=== PATIENT | female | born 1980 | race Hispanic/Latino ===

== ENCOUNTER 2024-08-20 06:06 | Emergency (ER) | payer SELFPAY ==
--- OUTSIDE RECORDS SUMMARY | 2024-08-20 06:08 | XMS REPORT | Continuity of Care Document ---
Author Name Unknown Address [address] [facility] [address] [place] [address] [facility] thconnect Address [address] [facility] [address] [place] [address] Care Team Providers Care Directional Drill Operator Name Role Phone Rashawn Smith Attending Clinician Unavailable Junior Eid Attending Clinician Unavailable Physician, No Primary or Family Admitting Clinic efra Unavailable Junior Eid Admitting Clinician Unavailable Payers Payer Name Policy Type Policy Number Effective Date Expirati on Date Source Allergies, Adverse Reactions, Alerts Allergy Name Allergy Type Status Severity Reaction(s) Onset Date Inactive Date Treating Clinician Comments Source FLAGYL DA Active U 05-13 00:00: 00 [facility] No Known Contrast Allergie s DA Active U 05-13 00:00: 00 [facility] No Known Food Allergie s DA Active U 05-13 00:00: 00 [facility] No Known Other Allergie s DA Active U 05-13 00:00: 00 [facility] Encounters Start Date/Time End Date/Time Encounter Type Admission Type Attending Clinicians Care Facility Care Department Encounter ID Source 2022-11-22 18:15:00 2022-11-22 23:01:00 Emergency EM Rashawn Smith [facility] [id number] [facility] 2022-11-11 12:00:00 2022-11-11 12:00:00 Outpatient Junior Howard [facility] [id number] [facility] Results Test Description Test Time Test Comments Results Result Co mments Source [id number] 22:11:00* Test Item Value Reference Range Interpretation Comme nts LIPASE (test code = LIP) 50 U/L 12.00-57.00 N HCG SERUM [id number] 22:11:00* Test Item Value Reference Range Interpretation Comme nts HCG SERUM QUAL (test code = HCGQL) NEGATIVE NEGATIVE This HCGQL test is NOT applicable for MALE patients.Check with nurse about probable order error.If Tumor Marker Test needed, nurse should order test "HCGTU"(Test #550.16086) [id number] 22:11:00* Test Item Value Reference Range Interpretation Comme nts TROPONIN-HS (test code = TROPI) <4.0 pg/mL 0-45 N CAUTION: Units o f the current test methodology (pg/mL)differ from the prior test methodology (ng/mL) by a factorof 1000. BASIC METABOLIC [id number] 22:11:00* Test Item Value Reference Range Interpretation Comme nts SODIUM (test code = NA) 138 mmol/L 136-145 N POTASSIUM (test code = K) 3.8 mmol/L 3.5-5.1 N CHLORIDE (test code = CL) 104.0 mmol/L 98-107 N CARBON DIOXIDE (test code = CO2) 22.0 mmol/L 21-32 N ANION GAP (test code = GAP) 15.8 10-20 N GLUCOSE (test code = GLU) 105 mg/dL 74-106 N BLOOD UREA NITROGEN (test code = BUN) 23 mg/dL 7-18 H GLOMERULAR FILTRATION RATE (test code = GFR) > 60 mL/min See_Comment The Glomerular Filtration Rate is a calculated parameterbased on serum Creatinine, patient age and sex. GFR valuesless than 60 mL/min/1.73 square meters are indicative ofChronic Kidney Disease. Values less than 15 mL/min/1.73square meters indicate Kidney failure. The calculation forGFR is based on the CKD-EPI (202) calculation. This formulais race indifferent and is the recommended formula for GFRby the National Kidney Foundation for Adults.The GFR will not calculate if the sex is unknown or if thepatient's age is <18 years. [Automated message] The system which generated this result transmitted reference range: >=60. The reference range was not used to interpret this result as normal/abnormal. CREATININE (test code = CREAT) 0.70 mg/dL 0.55-1.02 N Note change in reference range due to change in reagent. BUN/CREATININE RATIO (test code = BUN/CREA) 32.9 10-20 H CALCIUM (test code = CA) 9.3 mg/dL 8.5-10.1 N - CT ABD PELVIS [id number] 21:40:00 [facility])Name: VIOLETTA BARRERA : 1980 Sex: F Name: VIOLETTA BARRERA [facility] : 1980 Age/S: 42 / F [address] [facility] Unit #: [id number] Loc: [place] [address] Phys: Rashawn Smith MD Acct: [id number] Dis Date: Status: REG ER PHONE #: [phone] Exam Date: 11/22/20222114 FAX #: [phone] Reason: LLQ LUQ pain EXAMS: CPT CODE: [id number] CT ABD PELVIS W/CONT 16023 EXAM: - CT ABD PELVIS W/CONT DATE: 11/22/2022 6:23 PM. INDICATION: LLQ LUQ pain . COMPARISON: CT scan of the abdomen and pelvis performed June. TECHNIQUE: Volumetric CT acquisition of the abdomen and pelvis after the administration of intravenous contrast. Axial, coronal and sagittal reconstructions. AEC, mA/kV adjustment by patient size, and/or iterative reconstruction technique were used, per departmental dose- optimization program.Contrast phases: Venous and Delayed. IV contrast: 100 mL Isovue 370. Oral contrast: None. DLP: 725.6 mGy-cm. FINDINGS: Lines and Tubes: None. Lower Thorax: Unremarkable. Liver and Biliary Tree: Normal. Gallbladder: Normal. No CT evidence of gallstones. Adrenals: Normal. Spleen: Normal. Pancreas: Normal. Kidneys and Ureters: No stones, hydronephrosis, or suspicious masses are identified on either side. Bladder: Normal. Reproductive Organs: Cystic distention of the cervix may represent a nabothian cyst of it is not well evaluated. Multiloculated left ovarian cyst. Gastrointestinal Tract: Unrem arkable with normal caliber. PAGE 1 Signed Report (CONTINUED) Name: VIOLETTA BARRERA [facility] : 1980 Age/S: 42 / F [address] [facility] Unit #: [id number] Loc: [place] [address] Phys: Rashawn Smith MD Acct: [id number] Dis Date: Status: REG ER PHONE #: [phone] Exam Date: 2114 FAX #: [phone] Reason: LLQ LUQ pain EXAMS: CPT CODE: [id number] CT ABD PELVIS W/CONT 32491 (Continued) Appendix: Normal Peritoneum and Retroperitoneum: No free air or ascites. Lymph Nodes: No lymphadenopathy. Vasculature: Unremarkable. Bones: No acute abnormality. Degenerative changes wi thin the spine. Soft Tissues: Unremarkable. IMPRESSION: No acute intra-abdominal or pelvic abnormality. The pelvic structures are better evaluated on the same day pelvic ultrasound. ElectronicallySigned by Demario Overton M.D. on 11/22/2022 at 2140 Reported and signed by: Demario Overton M.D. CC: Rashawn Smith MD Technologist:Annette Caruso RT(R); NORA Mayfield CTDI: DLP: Trnscb Date/Time: 11/22/2022 (2139) [email or web address] Orig Print D/T: S: 11/22/2022 (2142) PAGE 2 Signed Report- DUP AB/PEL/SC [id number] 20:15:00 [facility] : 1980 Sex: F Name: VIOLETTA ARLELANO [facility] : 1980 Age/S: 42 / F [address] [facility] Unit#: [id number] [place] [address] Phys: Rashawn Smith MD Acct: [id number] Dis Date: Status: REG ER PHONE #: [phone] Exam Date: 11/22/20221952 FAX #: [phone] Reason: PELVIC PAIN EXAMS: CPT CODE: [id number] DUP AB/PEL/SC COMP 57839 EXAM: - US PELVIS COMPLETE, - US TRANSVAGINAL NON OB, - DUP AB/PEL/SC COMP DATE: 11/22/2022 6:23 PM. INDICATION: PELVIC PAIN . COMPARISON: None available. TECHNIQUE: Multiplanar grayscale and color Doppler ultrasound of the pelvis were obtained transabdominally through a distended urinary bladder followed by transvaginal examination postvoid. FINDINGS: UTERUS Orientation: Anteverted. Size: 7.7 x 4.7 x 6.4 cm. Echogenicity: Normal. Cervix: Nabothian cysts identified. Addition, there are heterogeneous blood products within the cervix. Masses: None. ENDOMETRIUM Endometrial stripe: 0.7 cm. Focal Lesions: None. RIGHT OVARY Size: 2.4 x 2.1 x 1.8 cm. Cysts: None. Masses: None. Doppler: Normal, low-resistance flow. LEFT OVARY Size: 4.1 x 2.4 x 2.7 cm.Cysts: A simple cyst measuring 2.8 cm is measured within the left ovary. Masses: None. Doppler: Normal, low-resistance flow. OTHER Adnexa: No anechoic cystic structures imaged adjacent to the left ovary which measures a maximum diameter of 2.2 cm. No internal complex features. Free Fluid: None. PAGE 1 Signed Report (CONTINUED) Name: VIOLETTA ARELLANO [facility] : 1980 Age/S: 42 / F [address] [facility] Unit #: [id number] Loc: [place] [address] Phys: Rashawn Smith MD Acct: [id number] Date: Status: REG ER PHONE #: [phone] Exam Date: 11/22/20221952 FAX #: [phone] Reason: PELVIC PAIN EXAMS: CPT CODE: [id number] DUP AB/PEL/SC COMP 52803 (Continued) Other Findings: None.IMPRESSION: Hemorrhagic blood products are imaged within the cervix. Left ovarian cyst versus multiloculated left ovarian cyst. An MRI of the pelvis may be of benefit. at 2014 Reported and signed by: Demario Overton M.D. CC: Rashawn Smith MD Technologist: Vero Freeman Trnscb Date/Time: 11/22/2022 (2014) [email or web address] Orig Print D/T: S: 11/22/2022 (2017) Probe: PAGE 2 Signed Report- US TRANSVAGINAL NON OB 2022-11-22 20:15:00 [facility]Name: VIOLETTA ARELLANO : 1980 Sex: F Name: VIOLETTA ARELLANO [facility] : 1980 Age/S: 42 / F [address] Unit#: [id number] Loc: [place] [address] Phys: Rashawn Smith MD Acct: [id number] Dis Date: Status: REG ER PHONE #: [phone] Exam Date: 11/22/20221952 FAX #: [phone] Reason: Pelvic Pain EXAMS: CPT CODE: [id number] [place] [address] EXAM: - US PELVIS COMPLETE, - US TRANSVAGINAL NONOB, - DUP AB/PEL/SC COMP DATE: 11/22/2022 6:23 PM. INDICATION: PELVIC PAIN . COMPARISON: None available. TECHNIQUE: Multiplanar grayscale and color Doppler ultrasound of the pelvis were obtained transabdominally through a distended urinary bladder followed by transvaginal examination postvoid. FINDI NGS: UTERUS Orientation: Anteverted. Size: 7.7 x 4.7 x 6.4 cm. Echogenicity: Normal. Cervix: Nabothian cysts identified. Addition, there are heterogeneous blood products within the cervix. Masses: None. ENDOMETRIUM Endometrial stripe: 0.7 cm. Focal Lesions: None. RIGHT OVARY Size: 2.4 x 2.1 x 1.8 cm. Cysts: None. Masses: None. Doppler: Normal, low-resistance flow. LEFT OVARY Size: 4.1 x 2.4 x 2.7 cm. Cysts: A simple cyst measuring 2.8 cm is measured within the left ovary. Masses: None. Doppler: Normal, low-resistance flow. OTHER Adnexa: No anechoic cystic structures imaged adjacent to the left ovary which measures a maximum diameter of 2.2 cm. No internal complex features. Free Fluid: None. PAGE 1 Signed Report (CONTINUED) Name: VIOLETTA ARELLANO [facility] : 1980 Age/S: 42/ F [address] Unit #: [id number] Loc: [place] [address] Phys: Rashawn Smith MD Acct: [id number] Dis Date: Status: REG ER PHONE #: [phone] Exam Date: 11/22/20221952 FAX #: [phone] Reason: Pelvic Pain EXAMS: CPT CODE: [id number] [place] [address] (Continued) Other Findings: None. IMPRESSION: Hemorrhagic blood products are imaged within the cervix. Left ovarian cyst versus multiloculated left ovarian cyst. An MRI of the pelvis may be of benefit. at 2014 Reported and signed by: Dmeario Overton M.D. CC: Rashawn Smith MD Technologist: Vero Freeman Trnscb Date/Time: 11/22/2022 (2014) [email or web address] Orig Print D/T: S: 11/22/2022 (2017) Probe: [id number] PAGE 2 Signed Report- US PELVIS [id number] 20:15:00 [facility] ([facility])Name: VIOLETTA ARELLANO : 1980 Sex: F Name: VIOLETTA ARELLANO [facility] : 1980 Age/S: 42 / F [address] Unit#: [id number] Loc: [place] [address] Phys: Rashawn Smith MD Acct: [id number] Dis Date: Status: REG ER PHONE #: [phone] Exam Date: 11/22/20221952 FAX #: [phone] Reason: PELVIC PAIN EXAMS: CPT CODE: [id number] US PELVIS COMPLETE 20591 EXAM: - US PELVIS COMPLETE, - US TRANSVAGINAL NON OB, - DUP AB/PEL/SC COMP DATE: 11/22/2022 6:23 PM. INDICATION: PELVIC PAIN . COMPARISON: None available. TECHNIQUE: Multiplanar grayscale and color Doppler ultrasound of the pelvis were obtained transabdominally through a distended urinary bladder followed by transvaginal examination postvoid. FINDINGS: UTERUS Orientation: Anteverted. Size: 7.7 x 4.7 x 6.4 cm. Echogenicity: Normal. Cervix: Nabothian cysts identified. Addition, there are heterogeneous blood products within the cervix. Masses: None. ENDOMETRIUM Endometrial stripe: 0.7 cm. Focal Lesions: None. RIGHT OVARY Size: 2.4 x 2.1 x 1.8 cm. Cysts: None. Masses: None. Doppler: Normal, low-resistance flow. LEFT OVARY Size: 4.1 x 2.4 x 2.7 cm. Cysts: A simple cyst measuring 2.8 cm is measured within the left ovary. Masses: None. Doppler: Normal, low-resistance flow. OTHER Adnexa: No anechoic cystic structures imaged adjacent to the leftovary which measures a maximum diameter of 2.2 cm. No internal complex features. Free Fluid: None. PAGE 1 Signed Report (CONTINUED) Name: VIOLETTA ARELLANO [facility] : 1980 Age/S: 42 / F [address] [facility] Unit #: [id number] Loc: [place] [address] Phys: Rashawn Smith MD Acct: [id number] Dis Date: Status: REG ER PHONE #: [phone] Exam Date: 11/22/20221952 FAX #: [phone] Reason: PELVIC PAIN EXAMS: CPT CODE: [id number] US PELVIS COMPLETE 44327 (Continued) Other Findings: None. IMPRESSION: Hemorrhagic blood products are imaged within the cervix. Left ovarian cyst versus multiloculated left ovarian cyst. An MRI of the pelvis may be of benefit. at 2015 Reported and signed by: Demario Overton M.D. CC:Rashawn Smith MD Technologist: Vero Freeman Trnscb Date/Time: 11/22/2022 (2014) [email or web address] Orig Print D/T: S: 11/22/2022 (2018) Probe: PAGE 2 Signed [id number] 20:13:00* Test Item Value Reference Range Interpretation Comme nts GLUBED (test code = GLUBED) 95 mg/dL 74-106 N Performed by cer lupe corrugator operator helper at [facility] CBC W/O [id number] 18:47:00* Test Item Value Reference Range Interpretation Comme nts WHITE BLOOD CELL (test code = WBC) 11.3 K/mm3 4.5-12.5 N RED BLOOD CELL (test code = RBC) 4.91 mill/mm3 3.7-5.2 N HEMOGLOBIN (test code = HGB) 14.6 gram/dL 11.5-15.5 N HEMATOCRIT (test code = HCT) 45.2 % 36.0-46.0 N MEAN CELL VOLUME (test code = MCV) 92.1 fL 80-98 N MEAN CELL HGB (test code = MCH) 29.7 picogram 27.0-33.0 N MEAN CELL HGB CONCETRATION (test code = MCHC) 32.3 gram/dL 33.0-36.0 L RED CELL DISTRIBUTION WIDTH (test code = RDW) 13.9 % 11.6-16.2 N PLATELET COUNT (test code = PLT) 280 K/mm3 150-450 N MEAN PLATELET VOLUME (test c ode = MPV) 10.2 fL 6.7-11.0 N URINALYSIS [id number] 18:45:00* Test Item Value Reference Range Interpretation Comme nts UA COLOR (test code = COLU) YELLOW YELLOW UA APPEARANCE (test code = APPU) HAZY CLEAR A IS THE SAMPLE FROM ER OR L&D?Y IF THE ANSWER IS NO,PLEASE DOCUMENT TWO RN SIGNATURES HERE- by [id number] 11/22/22 1845 UA GLUCOSE DIPSTICK (test code = DGLUU) NEGATIVE mg/dL NEGATIVE UA BILIRUBIN DIPSTICK (test code = BILU) NEGATIVE mg/dL NEGATIVE UA KETONE DIPSTICK (test code = KETU) NEGATIVE mg/dL NEGATIVE UA SPECIFIC GRAVITY (test code = SGU) 1.037 1.001-1.035 UA BLOOD DIPSTICK (test code = MARTIN) Negative mg/dL NEGATIVE UA PH DIPSTICK (test code = ESPERANZA) 5.5 5.0-8.0 UA PROTEIN DIPSTICK (test code = PROU) 50 (1+) mg/dL NEGATIVE A UA UROBILINIOGEN DIPSTICK (test code = URO) 2.0 (1+) mg/dL NEGATIVE A UA NITRITE DIPSTICK (test code = BIRD) NEGATIVE NEGATIVE UA LEUKOCYTE ESTERASE W REFLEX (test code = LEUUR) NEGATIVE Taylor/uL NEGATIVE UA WBC (test code = WBCU) 0-5 per HPF 0-5 UA RBC (test code = RBCU) 0-2 #/HPF 0-5 UA EPITHELIAL CELLS (test code = EPIU) MOD per HPF FEW UA BACTERIA (test code = BACU) FEW #/HPF NONE A UA HYALINE CAST (test code = HYALU) 3-5 #/LPF 0-5 UA MUCUS (test code = MUCU) MANY #/LPF FEW A Urine Source? Clean Catch
[2024-08-20 06:51] LABS: PT Prothrombin Time 13.4 SECONDS (9.4-12.5); Protime INR 1.2
[2024-08-20] MEDS ORDERED: DIAZEPAM 5 MG TABLET ONE (06:52)
[2024-08-20] MEDS ORDERED: NA CHLORIDE 0.9% 1,000 ML ONE (06:52)
[2024-08-20 06:54] LABS: Absolute Eosinophils 0.4 K/uL (0-0.5); Absolute Lymphocytes (CBC) 1.9 K/uL (0.7-4.9); Absolute Monocytes 0.4 K/uL (0.1-1.3); Absolute Neutrophil 2.7 K/uL (1.8-8.0); Basophils % 0.7 % (0-1.3); Eosinophils % 7.2 % (0-4.4); Hematocrit 38.5 % (36.0-45.0); Hemoglobin 12.8 g/dL (12.0-15.0); Lymphocytes % 35.3 % (15.3-44.8); MCH 28.8 pg (27.0-35.0); MCHC 33.3 g/dL (32.0-36.0); MCV 86.5 fL (80-100); MPV 8.4 fL (7.6-11.3); Monocytes % 7.2 % (3.3-12.3); Neutrophils % 49.6 % (41.7-73.7); Nucleated Red Blood Cells % 0.1 % (0-0); Platelets 264 thou/uL (152-406); RBC Red Blood Cell Count 4.45 M/uL (3.86-4.86); Red Cell Distribution Width 15.1 % (12.1-15.2)
[2024-08-20 07:05] LABS: ALT/SGPT 36 U/L (13-56); AST/SGOT 21 U/L (15-37); Albumin 3.4 g/dL (3.4-5.0); Albumin/Globulin Ratio 0.9 (1.1-1.8); Alkaline Phosphatase 91 U/L (45-117); Anion Gap 8.4 mEq/L (5.0-15.0); BUN Blood Urea Nitrogen 15 mg/dL (7-18); Bicarbonate 25 mEq/L (21-32); Bilirubin Total 0.4 mg/dL (0.2-1.0); Globulin 3.7 g/dL (2.3-3.5); Glomerular Filtration Rate 102 ml/min (=/>90); Glucose Level 110 mg/dL (74-106); NT PRO-BNP 72 pg/mL (<125); Potassium 3.4 mEq/L (3.5-5.1); Protein, Total 7.1 g/dL (6.4-8.2); Sodium Level 140 mEq/L (136-145)
[2024-08-20 07:06] LABS: Bilirubin Direct < 0.2 mg/dL (0-0.2); Bilirubin Indirect, Calculated 0.2 mg/dL (0.2-0.8); Troponin High Sensitivity < 3.0 pg/mL (<58.9)
--- NOTE | 2024-08-20 07:29 | RAD REPORT ---
EXAM: CT brain without contrast HISTORY: Numbness and dizziness COMPARISON: 2011 TECHNIQUE: Multiple contiguous axial images were obtained and a CT of the brain without contrast.. Sagittal and coronal reconstruction performed. Automated exposure control, adjustment of the mA and/or kV according to patient size, and/or iterative reconstruction. Unless otherwise specified, incidental f indings do not require dedicated imaging follow-up FINDINGS: An intracranial bleed is not seen Ventricles are normal caliber No extra-axial fluid collection noted No significant hypodensity within the brain No fluid within the visualized sinuses or mastoids noted. IMPRESSION: No acute intracranial abnormality noted. If the patient continues to have symptoms to suggest an acute intracranial abnormality then MRI of th e brain would be recommended.
--- NOTE | 2024-08-20 07:31 | RAD REPORT ---
Procedure: Chest Single View HISTORY: Dizziness and numbness COMPARISON: none FINDINGS: The lungs appear clear of acute infiltrate. No significant pleural effusion noted. The heart is probably upper limits normal size. IMPRESSION: No acute abnormality is displayed.
--- NOTE | 2024-08-20 07:37 | RAD REPORT ---
EXAMINATION: CTA HEAD CLINICAL INDICATION: Blurred vision and dizziness TECHNIQUE: Axial CT images were obtained through the head after 100 cc Isovue-370 intravenous contras t utilizing angiographic protocol with 3D post-processing (maximum intensity projection images, volume rendered images and/or shaded surface rendered images). One or more of the following dose red uction techniques were used: Automated exposure control, adjustment of the mA and/or kV according to patient size, and/or iterative reconstruction. Unless otherwise specified, incidental findings do not require dedicated imaging follow-up. COMPARISON: None FINDINGS: Distal internal carotid, basilar, anterior cerebral, middle cerebral and posterior cerebral arteries do not demonstrate a significant stenosis An aneurysm not noted. No large vessel occlusion IMPRESSION: No acute vascular abnormality displayed
--- NOTE | 2024-08-20 07:37 | RAD REPORT ---
EXAMINATION: Neck Angio CLINICAL INDICATION: Numbness and dizziness TECHNIQUE: Axial CT images were obtained from the aortic arch to the skull base after intravenous adm inistration of 100 cc Isovue-370 utilizing angiographic protocol. Multiplanar reformats, as well as 3D post-processing (maximum intensity projection images, volume rendered images and/or shaded surface rendered images) were generated and reviewed. One or more of the following dose reduction techniques were used: Automated exposure control, adjustment of the mA and/or kV according to patient size, and/or iterative reconstruction. Unless otherwise specified, incidental findings do not require dedicated imaging follow-up. COMPARISON: No prior exam. FINDINGS: The visualized aortic arch and great vessels do not demonstrate a significant abnormality. Bovine aor ta The common carotid, internal carotid and external carotid arteries unremarkable. No significant stenosis noted. A dissection is not seen. Methods for NASCET criteria: Mild stenosis, 0% to 49%; Moderate stenosis 50% to 69%; Severe stenosis, 70% to 99% IMPRESSION: No acute vascular abnormality displayed
--- NOTE | 2024-08-20 07:55 | EDPHYS ---
Physician Documentation [facility] Name: Aminah Roberts Age: 44 yrs Sex: Female : 1980 Arrival Date: 08/20/2024 Time: 06:06 Bed 3 Private MD: ED Physician Enrique Mendoza HPI: 08/20 06:23 This 44 yrs old Female presents to ER via Unassigned with complaints of sp4 dizziness . 07:07 44-year-old female presents with acute onset of dizziness generalized numbness. Patient sp4 was on her way to work and was at the gas station when generalized dizziness numbness occurred. Patient is ambulatory on arrival.. 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 - Infectious Disease History:: Denies. - Social history:: Smoking status: Patient denies any tobacco usage or history of. - Family history:: not pertinent. ROS: 07:07 Constitutional: Negative for fever, chills, and weight loss, positive dizziness sp4 positive generalized numbness 07:07 All other systems are negative, Exam: 07:07 Constitutional: This is a well developed, well nourished patient who is awake, alert, sp4 and in no acute distress. Head/Face: Normocephalic, atraumatic. Eyes: Pupils equal round and reactive to light, extra-ocular motions intact. Lids and lashes normal. Conjunctiva and sclera are not injected. Cornea within normal limits. Periorbital areas with no swelling, redness, or edema. ENT: Nares patent. No nasal discharge, no septal abnormalities noted. Tympanic membranes are normal and external auditory canals are clear. Oropharynx with no redness, swelling, or masses, exudates, or evidence of obstruction, uvula midline. Mucous membranes moist. Neck: Trachea midline, no thyromegaly or masses palpated, and no cervical lymphadenopathy. Supple, full range of motion without nuchal rigidity, or vertebral point tenderness. Chest/axilla: Normal chest wall appearance and motion. Nontender with no deformity. No lesions are appreciated. Cardiovascular: Regular rate and rhythm with a normal S1 and S2. No gallops, murmurs, or rubs. Normal PMI, no JVD. No pulse deficits. Respiratory: Lungs have equal breath sounds bilaterally, clear to auscultation and percussion. No rales, rhonchi or wheezes noted. No increased work of breathing, no retractions or nasal flaring. Abdomen/GI: Soft, with normal bowel sounds. No distension or tympany. No guarding or rebound. No evidence of tenderness throughout. Back: No spinal tenderness. No costovertebral tenderness. Skin: Warm, dry with normal turgor. Normal color with no rashes, no lesions, and no evidence of cellulitis. MS/ Extremity: Pulses equal, no cyanosis. Neurovascular intact. Full, normal range of motion. Neuro: Awake and alert, GCS 15, oriented to person, place, time, and situation. Cranial nerves II-XII grossly intact. Motor strength 5/5 in all extremities. Sensory grossly intact. Psych: Awake, alert, with orientation to person, place and time. Behavior, mood, and affect are within normal limits 07:08 ECG was reviewed by the Attending Physician. EKG at 0 636 normal sinus rhythm rate sp4 71. Vital Signs: 06:31 BP 142 / 90; Pulse 85; Resp 16; Temp 97.6; Pulse Ox 98% ; Weight 80.74 kg; Height 5 ft. vc1 2 in. ; 07:15 BP 138 / 82; Pulse 80; Resp 16; Pulse Ox 99% ; ko1 06:31 Body Mass Index 32.56 (80.74 kg, 157.48 cm) vc1 NIH Stroke Scale Scores: 06:25 NIHSS Score: 0 sp4 06:37 NIHSS Score: 0 vc1 Jaylyn Coma Score: 06:41 Eye Response: spontaneous(4). Motor Response: obeys commands(6). Verbal Response: dd2 oriented(5). Total: 15. 07:07 Eye Response: spontaneous(4). Motor Response: obeys commands(6). Verbal Response: sp4 oriented(5). Total: 15. MDM: 06:25 Medical Screening Exam initiated sp4 07:09 Differential diagnosis: generalized weakness, hyperventilation, hypovolemia, idiopathic sp4 dizziness, near-syncope, sepsis, syncope. Data reviewed: vital signs, nurses notes, lab test result(s), EKG, radiologic studies, CT scan. Consideration of Admission/Observation Escalation of care including admission/observation considered. Transition of care: After a detail discussion of the patient's case, care is transferred to Enrique Mendoza MD. 07:46 ED course: Patient signed out to me by night physician. Patient is a 44-year-old female sp3 with PMH above presenting with facial paresthesia. Full CVA workup was ordered as a precautionary measure which is negative including CTA of the head and neck. Normal neurological exam currently with NIH stroke scale 0. Patient will be safely discharged with follow-up with neurology at this time.. 08/20 06:27 Order name: Basic Metabolic Panel; Complete Time: 07:27 sp4 08/20 06:27 Order name: CBC with Diff; Complete Time: 07:27 4 08/20 06:27 Order name: LFT's; Complete Time: 07:27 4 08/20 06:27 Order name: Magnesium; Complete Time: 07:27 4 08/20 06:27 Order name: NT PRO-BNP; Complete Time: 07:27 4 08/20 06:27 Order name: PT-INR; Complete Time: 07:27 4 08/20 06:27 Order name: Troponin HS; Complete Time: 07:27 sp4 08/20 06:26 Order name: CT Head Angio; Complete Time: 07:42 4 08/20 06:26 Order name: CT Head Brain wo Cont; Complete Time: 07:42 4 08/20 06:27 Order name: CT Neck Angio; Complete Time: 07:42 4 08/20 06:27 Order name: XRAY Chest (1 view); Complete Time: 07:42 4 08/20 06:27 Order name: Cardiac monitoring; Complete Time: 06:42 4 08/20 06:27 Order name: EKG - Nurse/Tech; Complete Time: 06:42 4 08/20 06:27 Order name: IV Saline Lock; Complete Time: 06:42 4 08/20 06:27 Order name: Labs collected and sent; Complete Time: 06:42 4 08/20 06:27 Order name: O2 Per Protocol; Complete Time: 06:42 08/20 06:27 Order name: O2 Sat Monitoring; Complete Time: 06:42 sp4 EC:36 Rate is 71 beats/min. Rhythm is regular, Normal Sinus Rhythm. QRS Mabel is Normal. MI sp4 interval is normal. QRS interval is normal. QT interval is normal. No Q waves. T waves are Normal. No ST changes noted. Clinical impression: Normal ECG. Interpreted by me. Reviewed by me. Administered Medications: 07:03 Drug: NS 0.9% IV 1000 ml IV at 1 bolus Per protocol; to be given as a bolus over 60 dd2 minutes Route: IV; Rate: 1 bolus; Site: right antecubital; 08:08 Follow up: Response: No adverse reaction; IV Status: Completed infusion; IV Intake: ko1 1000ml 07:03 Drug: Diazepam PO 5 mg PO once Route: PO; dd2 07:35 Follow up: Response: No adverse reaction ko1 Disposition Summary: 08/20/24 07:54 Discharge Ordered Notes: Location: Home sp3 Condition: Stable sp3 Diagnosis - Facial paresthesia, resolved sp3 Followup: sp3 - With: Trenton Hester MD - When: Upon discharge from the Emergency Department - Reason: Recheck today's complaints Discharge Instructions: - Discharge Summary Sheet sp3 - Paresthesia sp3 Forms: - Medication Reconciliation Form sp3 - Antibiotic Education sp3 - Prescription Opioid Use sp3 - Patient Portal Instructions sp3 - Leadership Thank You Letter sp3 NIH Stroke Scale - NIH Stroke Score Date: 08/20/2024 Time: 06:25 Total Score = 0 10. Dysarthria (speech clarity - read or repeat words) - 0(Normal) 11. Extinction and Inattention (visual/tactile/auditory/spatial/personal) - 0(No abnormality) 1a. Level of Consciousness (LOC) - 0(Alert) 1b. Level of Consciousness (LOC) (Month \T\ Age) - 0(Both) 1c. LOC Commands (Open \T\ Closes Eyes/Wood Milling Machine Operator) - 0(Both) 2. Best Gaze (Lateral Gaze Paresis) - 0(Normal) 3. Visual Field Loss - 0(No visual loss) 4. Facial Palsy - 0(Normal) 5a. Left Arm: Motor (10-second hold) - 0(No drift) 5b. Right Arm: Motor (10-second hold) - 0(No drift) 6a. Left Leg: Motor (5-second hold - always test supine) - 0(No drift) 6b. Right Leg: Motor (5-second hold - always test supine) - 0(No drift) 7. Limb Ataxia (finger/nose \T\ heel/nielson - test with eyes open) - 0(Absent) 8. Sensory Loss (pinprick arms/legs/face) - 0(Normal) 9. Best Language: Aphasia (description/naming/reading) - 0(No aphasia) Initials: sp4 NIH Stroke Scale - NIH Stroke Score Date: 08/20/2024 Time: 06:37 Total Score = 0 10. Dysarthria (speech clarity - read or repeat words) - 0(Normal) 11. Extinction and Inattention (visual/tactile/auditory/spatial/personal) - 0(No abnormality) 1a. Level of Consciousness (LOC) - 0(Alert) 1b. Level of Consciousness (LOC) (Month \T\ Age) - 0(Both) 1c. LOC Commands (Open \T\ Closes Eyes/Wood Milling Machine Operator) - 0(Both) 2. Best Gaze (Lateral Gaze Paresis) - 0(Normal) 3. Visual Field Loss - 0(No visual loss) 4. Facial Palsy - 0(Normal) 5a. Left Arm: Motor (10-second hold) - 0(No drift) 5b. Right Arm: Motor (10-second hold) - 0(No drift) 6a. Left Leg: Motor (5-second hold - always test supine) - 0(No drift) 6b. Right Leg: Motor (5-second hold - always test supine) - 0(No drift) 7. Limb Ataxia (finger/nose \T\ heel/nielson - test with eyes open) - 0(Absent) 8. Sensory Loss (pinprick arms/legs/face) - 0(Normal) 9. Best Language: Aphasia (description/naming/reading) - 0(No aphasia) Initials: vc1 Signatures: Dispatcher [employer] Enrique Dale MD MD sp3 Lorraine Jean RN RN vc1 Jace Drummond MD MD sp4 EVERETTE PEÑALOZA RN RN dd2 Sunitha Dunbar RN ko1 Corrections: (The following items were deleted from the chart) 06:27 06:27 Neck Angio+CT.RAD.BRZ ordered. EDMS EDMS 06:34 06:33 Allergies: No Known Allergies; vc1 vc1
--- NOTE | 2024-08-20 07:55 | ER ---
Nurse's Notes [facility] Name: Aminah Roberts Age: 44 yrs Sex: Female : 1980 Arrival Date: 08/20/2024 Time: 06:06 Bed 3 Private MD: Diagnosis: Facial paresthesia, resolved Presentation: 08/20 06:31 Chief complaint: Patient states: face felt hot, then felt numb and my speech was vc1 slurred. Coronavirus screen: Client denies travel out of the [place] in the last 14 days. At this time, the client does not indicate any symptoms associated with coronavirus-19. Ebola Screen: Patient negative for fever greater than or equal to 101.5 degrees Fahrenheit, and additional compatible Ebola Virus Disease symptoms Patient denies exposure to infectious person. Patient denies travel to an Ebola-affected area in the 21 days before illness onset. No symptoms or risks identified at this time. Initial Sepsis Screen: Does the patient meet any 2 criteria? No. Patient's initial sepsis screen is negative. Does the patient have a suspected source of infection? No. Patient's initial sepsis screen is negative. Risk Assessment: Do you want to hurt yourself or someone else? Patient reports no desire to harm self or others. Onset of symptoms was August 20, 2024. 06:31 Method Of Arrival: Ambulatory vc1 06:31 Acuity: MARY 3 vc1 Triage Assessment: 06:35 General: Appears in no apparent distress. comfortable, Behavior is calm, cooperative, vc1 appropriate for age. Pain: Denies pain. EENT: No deficits noted. No signs and/or symptoms were reported regarding the EENT system. Neuro: Level of Consciousness is awake, alert, obeys commands, Oriented to person, place, time, situation, Appropriate for age Speech is normal, Facial symmetry appears normal, Reports numbness. Cardiovascular: Capillary refill < 3 seconds Patient's skin is warm and dry. Respiratory: Airway is patent Respiratory effort is even, unlabored, Respiratory pattern is regular, symmetrical. GI: No deficits noted. No signs and/or symptoms were reported involving the gastrointestinal system. : No deficits noted. No signs and/or symptoms were reported regarding the genitourinary system. Derm: Skin is intact, is healthy with good turgor, Skin is dry, Skin is normal, Skin temperature is warm. Musculoskeletal: Circulation, motion, and sensation intact. Range of motion: intact in all extremities. 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 - Infectious Disease History:: Denies. - Social history:: Smoking status: Patient denies any tobacco usage or history of. - Family history:: not pertinent. Screenin:34 [facility] ED Fall Risk Assessment (Adult) History of falling in the last 3 months, vc1 including since admission No falls in past 3 months (0 pts) Confusion or Disorientation No (0 pts) Intoxicated or Sedated No (0 pts) Impaired Gait No (0 pts) Mobility Assist Device Used No (0 pt) Altered Elimination No (0 pt) Score/Fall Risk Level 0 - 2 = Low Risk Oriented to surroundings, Maintained a safe environment, Educated pt \T\ family on fall prevention, incl call for assistance when getting out of bed. Abuse screen: Denies threats or abuse. Nutritional screening: No deficits noted. Tuberculosis screening: No symptoms or risk factors identified. Assessment: 07:15 General: Appears in no apparent distress. Neuro: Reports paresthesias in face. ko1 Cardiovascular: No deficits noted. Respiratory: No deficits noted. Vital Signs: 06:31 BP 142 / 90; Pulse 85; Resp 16; Temp 97.6; Pulse Ox 98% ; Weight 80.74 kg; Height 5 ft. vc1 2 in. ; 07:15 BP 138 / 82; Pulse 80; Resp 16; Pulse Ox 99% ; ko1 06:31 Body Mass Index 32.56 (80.74 kg, 157.48 cm) vc1 Buckner Coma Score: 06:41 Eye Response: spontaneous(4). Motor Response: obeys commands(6). Verbal Response: dd2 oriented(5). Total: 15. 07:07 Eye Response: spontaneous(4). Motor Response: obeys commands(6). Verbal Response: sp4 oriented(5). Total: 15. NIH Stroke Scale Scores: 06:25 NIHSS Score: 0 sp4 06:37 NIHSS Score: 0 vc1 ED Course: 06:17 Patient arrived in ED. al5 06:23 Jace Drummond MD is Attending Physician. sp4 06:33 Triage completed. vc1 06:34 Arm band placed on left wrist. vc1 06:35 Patient has correct armband on for positive identification. Placed in gown. Bed in low vc1 position. Pulse ox on. NIBP on. 06:40 EVERETTE PEÑALOZA, RN is Primary Nurse. dd2 06:41 Door closed. Noise minimized. Warm blanket given. Pillow given. Verbal reassurance dd2 given. 06:41 No provider procedures requiring assistance completed. Initial lab(s) drawn, by me, dd2 sent to lab. EKG done, by ED staff, reviewed by Jace Drummond MD. Inserted saline lock: 20 gauge in right antecubital area, using aseptic technique. Blood collected. Flushed with 10 mL NS. Patient maintains SpO2 saturation greater than 95% on room air. 06:42 Basic Metabolic Panel Sent. dd2 06:42 CBC with Diff Sent. dd2 06:42 LFT's Sent. dd2 06:42 Magnesium Sent. dd2 06:42 NT PRO-BNP Sent. dd2 06:42 PT-INR Sent. dd2 06:42 Troponin HS Sent. dd2 06:56 XRAY Chest (1 view) In Process Unspecified. EDMS 07:15 Provided Education on: labs. ko1 07:21 CT Head Angio In Process Unspecified. EDMS 07:22 CT Head Brain wo Cont In Process Unspecified. EDMS 07:22 CT Neck Angio In Process Unspecified. EDMS 07:27 Attending Physician role handed off by Jace Drummond MD sp3 07:27 Enrique Mendoza MD is Attending Physician. sp3 07:48 Trenton Hester MD is Referral Physician. sp3 08:07 IV discontinued, intact, bleeding controlled, No redness/swelling at site. Pressure ko1 dressing applied. Administered Medications: 07:03 Drug: NS 0.9% IV 1000 ml IV at 1 bolus Per protocol; to be given as a bolus over 60 dd2 minutes Route: IV; Rate: 1 bolus; Site: right antecubital; 08:08 Follow up: Response: No adverse reaction; IV Status: Completed infusion; IV Intake: ko1 1000ml 07:03 Drug: Diazepam PO 5 mg PO once Route: PO; dd2 07:35 Follow up: Response: No adverse reaction ko1 Medication: 06:37 VIS not applicable for this client. vc1 Intake: 08:08 IV: 1000ml; Total: 1000ml. ko1 Outcome: 07:54 Discharge ordered by sp3 08:07 Discharged to home ambulatory, with family, ko1 08:07 Condition: stable 08:07 Discharge instructions given to patient, family, Instructed on discharge instructions, follow up and referral plans. Demonstrated understanding of instructions, follow-up care, 08:09 Patient left the ED. ko1 NIH Stroke Scale - NIH Stroke Score Date: 08/20/2024 Time: 06:25 Total Score = 0 10. Dysarthria (speech clarity - read or repeat words) - 0(Normal) 11. Extinction and Inattention (visual/tactile/auditory/spatial/personal) - 0(No abnormality) 1a. Level of Consciousness (LOC) - 0(Alert) 1b. Level of Consciousness (LOC) (Month \T\ Age) - 0(Both) 1c. LOC Commands (Open \T\ Closes Eyes/Director Of Sports Medicine) - 0(Both) 2. Best Gaze (Lateral Gaze Paresis) - 0(Normal) 3. Visual Field Loss - 0(No visual loss) 4. Facial Palsy - 0(Normal) 5a. Left Arm: Motor (10-second hold) - 0(No drift) 5b. Right Arm: Motor (10-second hold) - 0(No drift) 6a. Left Leg: Motor (5-second hold - always test supine) - 0(No drift) 6b. Right Leg: Motor (5-second hold - always test supine) - 0(No drift) 7. Limb Ataxia (finger/nose \T\ heel/nielson - test with eyes open) - 0(Absent) 8. Sensory Loss (pinprick arms/legs/face) - 0(Normal) 9. Best Language: Aphasia (description/naming/reading) - 0(No aphasia) Initials: sp4 NIH Stroke Scale - NIH Stroke Score Date: 08/20/2024 Time: 06:37 Total Score = 0 10. Dysarthria (speech clarity - read or repeat words) - 0(Normal) 11. Extinction and Inattention (visual/tactile/auditory/spatial/personal) - 0(No abnormality) 1a. Level of Consciousness (LOC) - 0(Alert) 1b. Level of Consciousness (LOC) (Month \T\ Age) - 0(Both) 1c. LOC Commands (Open \T\ Closes Eyes/Director Of Sports Medicine) - 0(Both) 2. Best Gaze (Lateral Gaze Paresis) - 0(Normal) 3. Visual Field Loss - 0(No visual loss) 4. Facial Palsy - 0(Normal) 5a. Left Arm: Motor (10-second hold) - 0(No drift) 5b. Right Arm: Motor (10-second hold) - 0(No drift) 6a. Left Leg: Motor (5-second hold - always test supine) - 0(No drift) 6b. Right Leg: Motor (5-second hold - always test supine) - 0(No drift) 7. Limb Ataxia (finger/nose \T\ heel/nielson - test with eyes open) - 0(Absent) 8. Sensory Loss (pinprick arms/legs/face) - 0(Normal) 9. Best Language: Aphasia (description/naming/reading) - 0(No aphasia) Initials: vc1 Signatures: Dispatcher [employer] EDEnrique Almaraz MD MD sp3 Lorraine Jean RN RN vc1 Sunitha Dunbar RN RN ko1 Jace Drummond MD MD sp4 Ria Medrano RN RN al5 EVERETTE PEÑALOZA RN RN dd2 Corrections: (The following items were deleted from the chart) 06:34 06:33 Allergies: No Known Allergies; vc1 vc1
[2024-08-20 08:33] VITALS: TEMP 97.6
[2024-08-20 08:35] VITALS: BP 138/82; O2SAT 99
--- NOTE | 2024-08-20 14:49 | EKG ---
Test Date: 2024-08-20 Test Time: 06:36:58 Compliance Investigator: DALTON MEASUREMENT RESULTS: Intervals: Rate: 71 KS: 148 QRSD: 74 QT: 386 QTc: 419 [place]: P: 90 KS: 148 QRS: 63 T: 198 INTERPRETIVE STATEMENTS: Normal sinus rhythm Low voltage QRS ST & T wave abnormality, consider inferolateral ischemia Abnormal ECG No previous ECG available for comparison Electronically Signed On 08-20-24 14:48:24 OPHTHALMIC NURSE by Tono Alberts
== END 2024-08-20 08:09 | disposition home or self-care (01) ==
LOC: ER 06:06
DX: R20.2 Paresthesia of skin (principal); R42 Dizziness and giddiness
CPT/HCPCS: 36415; 70450; 70496; 70498; 71045; 80048; 80076; 83735; 83880; 84484; 85025; 85610; 93005; 96360; 99285; J7030; Q9967